=== PATIENT | male | born 1995 | race Caucasian/White ===

== ENCOUNTER 2022-05-27 09:49 | Day surgery (SDC) | payer OTHER ==
[2022-05-26 16:25] VITALS: BMI 34.7
[2022-05-27 13:44] VITALS: TEMP 98.6
[2022-05-27 13:57] VITALS: BP 146/75; PULSE 91; RESP 13
== END 2022-05-27 14:10 | disposition home or self-care (01) ==
LOC: FECT 09:49
PROVIDERS: ATTEND Psychiatry & Neurology Psychiatry
PROC: GZB4ZZZ Other Electroconvulsive Therapy (ICD-10-PCS; principal; 2022-05-27 12:41)
DX: F32.A Depression, unspecified (principal)
CPT/HCPCS: 90870; 93005; 93010; 94760; C9803-CS; U0003; U0005

== ENCOUNTER 2022-05-31 07:32 | Day surgery (SDC) | payer OTHER ==
[2022-05-30 10:28] VITALS: BMI 34.7
[2022-05-31 08:04] VITALS: TEMP 98.1
[2022-05-31] MEDS ORDERED: KETAMINE HCL 500 MG/10 ML VIAL ONE (08:30)
[2022-05-31] MEDS ORDERED: ACETAMINOPHEN 1000 MG/100 ML BAG IVPB ONE (08:58)
[2022-05-31 10:14] VITALS: RESP 18
[2022-05-31 10:16] VITALS: BP 140/90; PULSE 88
== END 2022-05-31 10:05 | disposition home or self-care (01) ==
LOC: FECT 07:32
PROVIDERS: ATTEND Psychiatry & Neurology Psychiatry
PROC: GZB4ZZZ Other Electroconvulsive Therapy (ICD-10-PCS; principal; 2022-05-31 08:47)
DX: F32.A Depression, unspecified (principal)
CPT/HCPCS: 90870; 94760

== ENCOUNTER 2022-06-14 07:05 | Day surgery (SDC) | payer OTHER ==
[2022-06-01 16:33] VITALS: BMI 34.7
[2022-06-14] MEDS ORDERED: KETAMINE HCL 500 MG/10 ML VIAL ONE (09:18)
[2022-06-14] MEDS ORDERED: SODIUM CHLORIDE 0.9% P/F 10 ML VIAL IJ ONE (09:31)
[2022-06-14 09:44] VITALS: TEMP 97.4
[2022-06-14] MEDS ORDERED: METOPROLOL TARTRATE 5 MG/5 ML VIAL ONE (10:12)
[2022-06-14 10:18] VITALS: RESP 18
[2022-06-14] MEDS ORDERED: PROMETHAZINE HCL 25 MG/1 ML VIAL IVPUSH PRN (10:28)
[2022-06-14] MEDS ORDERED: ACETAMINOPHEN 500 MG TABLET (FP) PO PRN (10:28)
[2022-06-14] MEDS ORDERED: LACTATED RINGERS SOLUTION 1,000 ML IV SCH (10:30)
[2022-06-14 10:31] VITALS: BP 144/85; PULSE 89
== END 2022-06-14 10:35 | disposition home or self-care (01) ==
LOC: FECT 07:05
PROVIDERS: ATTEND Psychiatry & Neurology Psychiatry
PROC: GZB4ZZZ Other Electroconvulsive Therapy (ICD-10-PCS; principal; 2022-06-14 09:28)
DX: F32.A Depression, unspecified (principal)
CPT/HCPCS: 90870; 94760

== ENCOUNTER 2022-06-16 08:00 | Day surgery (SDC) | payer OTHER ==
[2022-06-08 07:22] VITALS: BMI 34.7
[2022-06-16] MEDS ORDERED: KETAMINE HCL 500 MG/10 ML VIAL ONE (08:46)
[2022-06-16] MEDS ORDERED: ACETAMINOPHEN 500 MG TABLET (FP) PO ONE (09:40)
[2022-06-16] MEDS ORDERED: ACETAMINOPHEN 500 MG TABLET (FP) ONE (09:42)
[2022-06-16 10:05] VITALS: RESP 18; TEMP 98
[2022-06-16 10:07] VITALS: BP 133/78; PULSE 91
== END 2022-06-16 10:10 | disposition home or self-care (01) ==
LOC: FECT 08:00
PROVIDERS: ATTEND Psychiatry & Neurology Psychiatry
PROC: GZB4ZZZ Other Electroconvulsive Therapy (ICD-10-PCS; principal; 2022-06-16 08:58)
DX: F32.A Depression, unspecified (principal)
CPT/HCPCS: 90870; 94760

== ENCOUNTER 2022-06-17 07:41 | Day surgery (SDC) | payer OTHER ==
[2022-06-16 13:07] VITALS: BMI 34.7
[2022-06-17 08:20] VITALS: RESP 16
[2022-06-17 16:41] VITALS: BP 117/84; PULSE 100; TEMP 98
== END 2022-06-17 10:25 | disposition home or self-care (01) ==
LOC: FECT 07:41
PROVIDERS: ATTEND Psychiatry & Neurology Psychiatry
PROC: GZB4ZZZ Other Electroconvulsive Therapy (ICD-10-PCS; principal; 2022-06-17 09:11)
DX: F32.A Depression, unspecified (principal)
CPT/HCPCS: 90870; 94760

== ENCOUNTER 2022-06-30 08:33 | Day surgery (SDC) | payer OTHER ==
[2022-06-28 07:31] VITALS: BMI 33.2
[2022-06-30] MEDS ORDERED: KETAMINE HCL 500 MG/10 ML VIAL ONE (09:37)
[2022-06-30 10:53] VITALS: RESP 16; TEMP 98.4
[2022-06-30 10:56] VITALS: BP 150/92; PULSE 88
== END 2022-06-30 10:50 | disposition home or self-care (01) ==
LOC: FECT 08:33
PROVIDERS: ATTEND Psychiatry & Neurology Psychiatry
PROC: GZB4ZZZ Other Electroconvulsive Therapy (ICD-10-PCS; principal; 2022-06-30 09:45)
DX: F32.A Depression, unspecified (principal)
CPT/HCPCS: 90870; 94760

== ENCOUNTER 2022-07-05 07:43 | Day surgery (SDC) | payer OTHER ==
[2022-06-28 07:36] VITALS: BMI 33.2
[2022-07-05] MEDS ORDERED: KETAMINE HCL 500 MG/10 ML VIAL ONE (10:06)
[2022-07-05 11:35] VITALS: BP 153/93; PULSE 90; RESP 18; TEMP 97.8
== END 2022-07-05 11:41 | disposition home or self-care (01) ==
LOC: FECT 07:43
PROVIDERS: ATTEND Psychiatry & Neurology Psychiatry
PROC: GZB4ZZZ Other Electroconvulsive Therapy (ICD-10-PCS; principal; 2022-07-05 10:19)
DX: F32.A Depression, unspecified (principal)
CPT/HCPCS: 90870; 94760

== ENCOUNTER → 2022-10-06 | Day surgery (SDC) | payer OTHER ==
[~2022-10-06] MED LIST: ACETAMINOPHEN 1000 MG/100 ML BAG IVPB ONE; ACETAMINOPHEN INJECTION 100 ML IVPB ONE; KETAMINE HCL 500 MG/10 ML VIAL ONE; PROPOFOL 20 ML ONE
[2022-10-06 09:58] VITALS: BMI 38.7
[2022-10-06 12:47] VITALS: TEMP 98.2
[2022-10-06 13:21] VITALS: RESP 18
[2022-10-06 13:25] VITALS: BP 151/87; PULSE 69
== END | disposition home or self-care (01) ==
LOC: FECT 09:30
PROVIDERS: ATTEND Psychiatry & Neurology Psychiatry
PROC: GZB4ZZZ Other Electroconvulsive Therapy (ICD-10-PCS; principal; 2022-10-06 12:09)
DX: F32.A Depression, unspecified (principal)
CPT/HCPCS: 90870; 94760

== ENCOUNTER 2022-12-30 08:29 | Day surgery (SDC) | payer OTHER ==
[2022-12-30 09:05] VITALS: BMI 38.2
[2022-12-30] MEDS ORDERED: KETAMINE HCL 500 MG/10 ML VIAL ONE (10:14)
[2022-12-30] MEDS ORDERED: KETOROLAC TROMETHAMINE 30 MG/1 ML VIAL ONE (10:18)
[2022-12-30] MEDS ORDERED: LIDOCAINE HCL/PF 2% SDV 5ML VIAL ONE (10:18)
[2022-12-30] MEDS ORDERED: PROPOFOL 20 ML ONE (10:18)
[2022-12-30] MEDS ORDERED: ONDANSETRON 4 MG/2 ML VIAL ONE (10:18)
[2022-12-30] MEDS ORDERED: SUCCINYLCHOLINE CHLORIDE 200 MG/10 ML SYRINGE ONE (10:18)
[2022-12-30] MEDS ORDERED: ONDANSETRON 4 MG/2 ML VIAL IVPUSH PRN (10:36)
[2022-12-30] MEDS ORDERED: LACTATED RINGERS SOLUTION 1,000 ML IV SCH (10:45)
[2022-12-30 11:52] VITALS: TEMP 97.1
[2022-12-30 12:03] VITALS: BP 136/70; PULSE 82; RESP 20
== END 2022-12-30 11:53 | disposition home or self-care (01) ==
LOC: FECT 08:29
PROVIDERS: ATTEND Psychiatry & Neurology Psychiatry
PROC: GZB4ZZZ Other Electroconvulsive Therapy (ICD-10-PCS; principal; 2022-12-30 10:24)
DX: F33.2 Major depressive disorder, recurrent severe without psychotic features (principal)
CPT/HCPCS: 90870; 93005; 94760

== ENCOUNTER 2023-01-06 06:25 | Day surgery (SDC) | payer OTHER ==
[2022-12-30 17:50] VITALS: BMI 38.2
[2023-01-06] MEDS ORDERED: KETAMINE HCL 500 MG/10 ML VIAL ONE (08:43)
[2023-01-06] MEDS ORDERED: SUCCINYLCHOLINE CHLORIDE 200 MG/10 ML SYRINGE ONE (08:57)
[2023-01-06 09:45] VITALS: TEMP 97.9
[2023-01-06 10:01] VITALS: BP 139/94; PULSE 81; RESP 18
== END 2023-01-06 10:04 | disposition home or self-care (01) ==
LOC: FECT 06:25
PROVIDERS: ATTEND Psychiatry & Neurology Psychiatry
PROC: GZB4ZZZ Other Electroconvulsive Therapy (ICD-10-PCS; principal; 2023-01-06 09:00)
DX: F33.2 Major depressive disorder, recurrent severe without psychotic features (principal)
CPT/HCPCS: 90870; 94760